=== PATIENT | female | born 1945 | race Caucasian/White ===

== ENCOUNTER 2020-08-28 10:15 | Day surgery (SDC) | payer MEDICARE, OTHER ==
[2020-08-27 15:10] LABS: BASOPHILS % (AUTO) 0.4 % (0-1); EOSINOPHILS % (AUTO) 0.3 % (0-6); HEMATOCRIT 34.2 % (35.0-45.0); HEMOGLOBIN 11.5 g/dl (12.0-16.0); LYMPHOCYTES % (AUTO) 13.3 % (21-51); MEAN CORPUSCULAR HEMOGLOBIN 32.6 PG (27.0-31.0); MEAN CORPUSCULAR HGB CONC 33.7 g/dL (33.0-36.5); MEAN CORPUSCULAR VOLUME 96.6 FL (78-98); MEAN PLATELET VOLUME 7.7 FL (7.4-10.4); MONOCYTES # (AUTO) 0.7 X10'3 (0-0.9); MONOCYTES % (AUTO) 8.5 % (2-12); NEUTROPHILS % (AUTO) 77.5 % (42-75); PLATELET COUNT 292 X10'3 (140-440); RED BLOOD COUNT 3.54 X10'6 (4.20-5.60); RED CELL DISTRIBUTION WIDTH 13.9 % (11.5-14.5); WHITE BLOOD COUNT 7.8 X10'3 (4.5-11.0)
[2020-08-27 15:25] LABS: ALBUMIN 3.9 G/DL (3.4-5.0); ANION GAP 11 (8-16); BLOOD UREA NITROGEN 20 MG/DL (7-18); BUN/CREATININE RATIO 21.3 (6.6-38.0); CALCIUM 8.1 MG/DL (8.5-10.1); CHLORIDE 99 MMOL/L (99-107); CREATININE 0.94 MG/DL (0.40-0.90); GLUCOSE 108 MG/DL (70-104); POTASSIUM 3.6 MMOL/L (3.5-5.1); SODIUM 136 MMOL/L (135-145); TOTAL CARBON DIOXIDE 26.5 MMOL/L (24-32); eGFR 58 ML/MIN
[2020-08-27 15:27] LABS: PARTIAL THROMBOPLASTIN TIME 26 SECONDS (22-32)
[~2020-08-28] VITALS: Ht 170.2 cm; Wt 92.7 kg
[2020-08-28] VITALS (12 sets, daily range): BP systolic 99–164; BP diastolic 53–81
[~2020-08-28 10:15] MED LIST: COL100C PO; DET2LAC PO; DULO-31 PO; EYE CAPS PO; FURO-150 PO; GABA300C PO; HYDR1TAB13 PO; MORP15TA60 PO; PROP40TA72 PO; SERT-153 PO; VITAMIN D3 PO
[2020-08-28] MEDS ORDERED: diphenhydrAMINE 25mg capsule PO PRN (10:45)
[2020-08-28] MEDS ORDERED: LIDOcaine/PRILOcaine 5gm cream TP ONE (10:45)
[2020-08-28] MEDS ORDERED: LORazepam 0.5 MG tablet PO PRN (10:45)
[2020-08-28] MEDS ORDERED: normal saline 1,000 ML IV SCH (10:45)
[2020-08-28] MEDS ORDERED: DULO-31 PO (11:26)
[2020-08-28] MEDS ORDERED: LOSA50TA64 PO (11:26)
[2020-08-28] MEDS ORDERED: ESTR0.5T PO (11:26)
[2020-08-28] MEDS ORDERED: PANT-47 PO (11:26)
[2020-08-28] MEDS ORDERED: GABA600T13 PO (11:26)
[2020-08-28] MEDS ORDERED: MORP15TA PO (11:26)
[2020-08-28] MEDS ORDERED: ARMO150T6 PO (11:26)
[2020-08-28] MEDS ORDERED: PRED10TA23 PO (11:26)
[2020-08-28] MEDS ORDERED: IPRA30SP (11:26)
[2020-08-28] MEDS ORDERED: TRAZ-256 PO (11:26)
[2020-08-28] MEDS ORDERED: MORP30TA PO (11:26)
[2020-08-28] MEDS ORDERED: LEVO200C2 PO (11:26)
[2020-08-28] MEDS ORDERED: ASPI81TA52 PO (11:26)
[2020-08-28] MEDS ORDERED: nitroGLYCERIN-Tridil 50MG/D5W 250 ML IV ONE (13:10)
[2020-08-28] MEDS ORDERED: verapamil 2.5 mg/ml inj IV ONE (13:10)
[2020-08-28] MEDS ORDERED: heparin 1,000unit/ml 10ml vial 10 ML ONE (13:11)
[2020-08-28] MEDS ORDERED: iohexol 350 MG/ML 50ML vial IV ONE (13:11)
[2020-08-28] MEDS ORDERED: LIDOcaine 1% (10mg/ml)w/preservative injection 20ml MDV ONE (13:11)
[2020-08-28] MEDS ORDERED: midazolam 1 mg/ML 2ml injection ONE ×2 (13:11→14:06)
[2020-08-28] MEDS ORDERED: fentaNYL/PF 50MCG/1 ML 2ML syringe ONE (13:11)
[2020-08-28] MEDS ORDERED: iohexol 350MG/ML 100ml bottle IV ONE (13:11)
[2020-08-28] MEDS ORDERED: HYDROcodone/acetaminophen 10/325mg tab PO PRN (14:50)
[2020-08-28] MEDS ORDERED: acetaminophen 325mg tablet PO PRN (14:50)
[2020-08-28] MEDS ORDERED: OXAZEpam 15mg capsule PO PRN (14:50)
[2020-08-28] MEDS ORDERED: HYDROcodone/acetaminophen 5mg/325mg tablet PO PRN (14:50)
== END 2020-08-28 18:55 | disposition home or self-care (01) ==
LOC: SSTAY O 10:15
PROVIDERS: ATTEND Internal Medicine Cardiovascular Disease
DX: R94.39 Abnormal result of other cardiovascular function study (principal); I25.10 Atherosclerotic heart disease of native coronary artery without angina pectoris; K21.9 Gastro-esophageal reflux disease without esophagitis; I10 Essential (primary) hypertension; G47.30 Sleep apnea, unspecified; G62.9 Polyneuropathy, unspecified; G25.0 Essential tremor; Z79.01 Long term (current) use of anticoagulants; Z79.899 Other long term (current) drug therapy; Z79.82 Long term (current) use of aspirin; Z85.89 Personal history of malignant neoplasm of other organs and systems; Z90.710 Acquired absence of both cervix and uterus; Z96.641 Presence of right artificial hip joint; Z98.890 Other specified postprocedural states; Z96.611 Presence of right artificial shoulder joint; Z98.41 Cataract extraction status, right eye; Z98.42 Cataract extraction status, left eye; Z72.89 Other problems related to lifestyle; Z87.01 Personal history of pneumonia (recurrent); Z88.5 Allergy status to narcotic agent; Z82.49 Family history of ischemic heart disease and other diseases of the circulatory system; Z80.3 Family history of malignant neoplasm of breast
CPT/HCPCS: 36415; 76937; 80048; 85025; 85610; 85730; 93005; 93458; 99152; C1769; J1644; J2001; J2250; J3010; J7030; Q0163; Q9967; 99153; A4620; A6258; J3490

== ENCOUNTER 2021-02-28 21:37 | Inpatient (IN) | payer MEDICARE, OTHER ==
[~2021-02-28] VITALS: Ht 170.2 cm; Wt 88.6 kg
[~2021-02-28 21:37] MED LIST changes: +ARMO150T6 PO; +ASPI81TA52 PO; -COL100C PO; +ESTR0.5T PO; -EYE CAPS PO; -GABA300C PO; +GABA600T13 PO; +IPRA30SP; +LEVO200C2 PO; +LOSA50TA64 PO; +MORP15TA PO; -MORP15TA60 PO; +MORP30TA PO; +PANT-47 PO; +PRED10TA23 PO; -PROP40TA72 PO; -SERT-153 PO; +TRAZ-256 PO; +temazepam 15mg capsule PO PRN
[2021-02-28 22:00] LABS: BASOPHILS % (AUTO) 0.6 % (0-1); EOSINOPHILS # (AUTO) 0.3 X10'3 (0-0.9); EOSINOPHILS % (AUTO) 4.1 % (0-6); HEMATOCRIT 33.5 % (35.0-45.0); HEMOGLOBIN 11.7 g/dl (12.0-16.0); LYMPHOCYTES # (AUTO) 2.2 X10'3 (1.1-4.8); LYMPHOCYTES % (AUTO) 28.1 % (21-51); MEAN CORPUSCULAR HEMOGLOBIN 32.6 PG (27.0-31.0); MEAN CORPUSCULAR HGB CONC 34.9 g/dL (33.0-36.5); MEAN CORPUSCULAR VOLUME 93.4 FL (78-98); MEAN PLATELET VOLUME 7.2 FL (7.4-10.4); MONOCYTES # (AUTO) 0.7 X10'3 (0-0.9); MONOCYTES % (AUTO) 8.7 % (2-12); NEUTROPHILS # (AUTO) 4.5 X10'3 (1.8-7.7); NEUTROPHILS % (AUTO) 58.5 % (42-75); PLATELET COUNT 272 X10'3 (140-440); RED BLOOD COUNT 3.59 X10'6 (4.20-5.60); RED CELL DISTRIBUTION WIDTH 12.5 % (11.5-14.5); WHITE BLOOD COUNT 7.7 X10'3 (4.5-11.0)
[2021-02-28 22:15] LABS: ALANINE AMINOTRANSFERASE 23 U/L (12-78); ALBUMIN 3.8 G/DL (3.4-5.0); ALBUMIN/GLOBULIN RATIO 1.1 (1.1-1.5); ALKALINE PHOSPHATASE 156 IU/L (46-116); ANION GAP 9 (8-16); ASPARTATE AMINO TRANSFERASE 18 U/L (10-37); BILIRUBIN,TOTAL 0.3 MG/DL (0.1-1.0); BLOOD UREA NITROGEN 11 MG/DL (7-18); CHLORIDE 97 MMOL/L (99-107); CREATININE 0.92 MG/DL (0.40-0.90); GLUCOSE 125 MG/DL (70-104); POTASSIUM 3.7 MMOL/L (3.5-5.1); SODIUM 133 MMOL/L (135-145); TOTAL CARBON DIOXIDE 26.8 MMOL/L (24-32); TOTAL PROTEIN 7.4 G/DL (6.4-8.2); eGFR 60 ML/MIN
[2021-02-28] MEDS ORDERED: nitroGLYCERIN 0.2mg/hour patch TD ONE (22:50)
[2021-02-28] MEDS ORDERED: normal saline 1000ml 1,000 ML IV ONE (22:50)
[2021-02-28] MEDS ORDERED: enoxaparin 100mg/ml syringe SUBCUT ONE (22:50)
[2021-02-28] MEDS ORDERED: aspirin 81mg tab.chew PO ONE (22:50)
[2021-02-28] MEDS ORDERED: normal saline 1000ML IV soln IVB ONE (22:50)
[2021-02-28 22:53] LABS: MAGNESIUM 1.9 MG/DL (1.5-2.4)
[2021-02-28] MEDS ORDERED: ondansetron/PF 4mg/2ml inj IV ONE (23:05)
[2021-02-28] MEDS ORDERED: morphine 2 MG/ML inj. syringe IV ONE (23:05)
[2021-02-28 23:11] LABS: PARTIAL THROMBOPLASTIN TIME 26 SECONDS (22-32)
[2021-02-28] MEDS ORDERED: nitroGLYCERIN 1gm ointment UD TP ONE (23:20)
[2021-02-28] MEDS ORDERED: metoprolol tartrate 1mg/ml inj IV PRN (23:40)
[2021-02-28] MEDS: normal saline 1000ml 1,000 ML IV SCH (23:40)
[2021-02-28] MEDS ORDERED: morphine 2 MG/ML inj. syringe IV PRN (23:40)
[2021-02-28] MEDS ORDERED: magnesium Cl slow-release 64mg tablet PO PRN (23:40)
[2021-02-28] MEDS ORDERED: regadenoson 0.4mg/5ml syringe IV ONE (23:40)
[2021-02-28] MEDS ORDERED: HYDROcodone/acetaminophen 5mg/325mg tablet PO PRN (23:40)
[2021-02-28] MEDS ORDERED: magnesium 2GM in 50ml NS 50 ML IV PRN (23:40)
[2021-02-28] MEDS ORDERED: aminophylline 250mg/10ml inj. IV PRN (23:40)
[2021-02-28] MEDS ORDERED: potassium CL 10mEq/100ml bag 100 ML IV PRN (23:40)
[2021-02-28] MEDS ORDERED: nitroGLYCERIN 0.4mg SUBLingual tab SL PRN (23:40)
[2021-02-28] MEDS ORDERED: mag hydrox/Alum hydrox/simeth 30ml oral suspension PO PRN (23:40)
[2021-02-28] MEDS ORDERED: ondansetron/PF 4mg/2ml inj IV PRN (23:40)
[2021-02-28] MEDS ORDERED: acetaminophen 325mg tablet PO PRN ×2 (23:40)
[2021-02-28] MEDS ORDERED: magnesium 4gm in 100ml NS 100 ML IV PRN (23:40)
[2021-02-28] MEDS ORDERED: potassium Cl 20 mEq SR tablet PO PRN ×2 (23:40)
[2021-02-28] MEDS ORDERED: regadenoson 0.4mg/5ml syringe IV PRN (23:50)
[2021-03-01] VITALS (13 sets, daily range): BP systolic 138–161; BP diastolic 77–89
[2021-03-01] MEDS ORDERED: HYDROcodone/acetaminophen 10/325mg tab PO PRN (00:10)
[2021-03-01] MEDS ORDERED: morphine 2 MG/ML inj. syringe IV PRN ×2 (00:10)
[2021-03-01 01:21] LABS: ETHANOL < 0.010 GM/DL (0.0-0.010)
[2021-03-01] MEDS ORDERED: HYDR-3972 PO (01:35)
[2021-03-01] MEDS ORDERED: PRIM50TA27 PO (01:39)
[2021-03-01] MEDS ORDERED: VIT1CAPS9 PO (01:39)
[2021-03-01] MEDS ORDERED: CHOL100046 PO (01:39)
[2021-03-01] MEDS ORDERED: CARV-49 PO (01:39)
[2021-03-01] MEDS ORDERED: VALA10002 PO (01:39)
[2021-03-01] MEDS ORDERED: heparin 10,000 units/1 ML INJ IV ONE (02:00)
[2021-03-01] MEDS ORDERED: heparin 10,000 units/1 ML INJ IV PRN (02:00)
[2021-03-01] MEDS ORDERED: heparin 25,000 UNIT/250ml bag 250 ML IV SCH (02:00)
[2021-03-01] MEDS: LORazepam 2 mg/ml vial IV PRN ×3 (02:08→18:37)
[2021-03-01] MEDS ORDERED: iohexol 350MG/ML 100ml bottle IV ONE ×2 (02:12→15:11)
--- NOTE | 2021-03-01 02:17 | NUR ---
patient moved from ED room 3 to ED room 2. After transfer patient became very anxious, and Short of breath. Pt given 1 mg Ativan IV, and put on a non rebreather at 15L. After interventions, pt O2 increased to 99, ease of breathing improved.
--- NOTE | 2021-03-01 07:04 | NUR ---
ASSUMED PT CARE. PT RESTING W/NO COMPLAINTS OR REQUESTS. DAUGHTER AT BEDSIDE. PT SHOWS NO S/S OF ACUTE DISTRESS.
[2021-03-01] MEDS ORDERED: pantoprazole 40mg Tablet.DR PO SCH (07:30)
[2021-03-01] MEDS ORDERED: heparin, porcine 5000 units/ml vial SQ SCH (08:00)
[2021-03-01] MEDS: K and/or MAG REPLACEMENT MC SCH ×2 (08:00→20:00)
[2021-03-01] MEDS ORDERED: nitroGLYCERIN 0.4mg/hour patch TD ONE (08:35)
--- NOTE | 2021-03-01 08:50 | NUR ---
SPOKE W/DR. LUGO CONCERNING INCREASED TREND OF TROPONIN LEVELS PRIOR TO LEXISCAN. MD WANTS TO WAIT FOR NEXT TROP BEFORE SENDING PT FOR LEXISCAN. PER DR. LUGO PT WILL PROCEED WITH LEXISCAN IF NEXT TROPONIN LEVEL SHOWS DECLINE.
[2021-03-01 09:10] LABS: PARTIAL THROMBOPLASTIN TIME 48 SECONDS (22-32)
[2021-03-01 09:19] LABS: BASOPHILS % (AUTO) 0.4 % (0-1); EOSINOPHILS # (AUTO) 0.2 X10'3 (0-0.9); EOSINOPHILS % (AUTO) 2.9 % (0-6); HEMATOCRIT 32.2 % (35.0-45.0); HEMOGLOBIN 11.2 g/dl (12.0-16.0); LYMPHOCYTES # (AUTO) 1.2 X10'3 (1.1-4.8); MEAN CORPUSCULAR HEMOGLOBIN 32.7 PG (27.0-31.0); MEAN CORPUSCULAR HGB CONC 34.7 g/dL (33.0-36.5); MEAN CORPUSCULAR VOLUME 94.1 FL (78-98); MEAN PLATELET VOLUME 7.9 FL (7.4-10.4); MONOCYTES # (AUTO) 0.5 X10'3 (0-0.9); MONOCYTES % (AUTO) 6.2 % (2-12); NEUTROPHILS # (AUTO) 5.8 X10'3 (1.8-7.7); NEUTROPHILS % (AUTO) 74.5 % (42-75); PLATELET COUNT 253 X10'3 (140-440); RED BLOOD COUNT 3.42 X10'6 (4.20-5.60); RED CELL DISTRIBUTION WIDTH 12.9 % (11.5-14.5); WHITE BLOOD COUNT 7.7 X10'3 (4.5-11.0)
[2021-03-01 09:41] LABS: ALANINE AMINOTRANSFERASE 18 U/L (12-78); ALBUMIN 3.3 G/DL (3.4-5.0); ALKALINE PHOSPHATASE 121 IU/L (46-116); ANION GAP 12 (8-16); ASPARTATE AMINO TRANSFERASE 16 U/L (10-37); BILIRUBIN,TOTAL 0.4 MG/DL (0.1-1.0); BLOOD UREA NITROGEN 10 MG/DL (7-18); BUN/CREATININE RATIO 12.5 (6.6-38.0); CALCIUM 7.6 MG/DL (8.5-10.1); CHLORIDE 104 MMOL/L (99-107); CHOL/HDL RATIO 2.1 (0.00-4.99); CHOLESTEROL 191 MG/DL (0-200); GLUCOSE 113 MG/DL (70-104); HDL CHOLESTEROL 92 MG/DL (35-60); LDL CHOLESTEROL 78 MG/DL (50-100); SODIUM 141 MMOL/L (135-145); TOTAL CARBON DIOXIDE 25.5 MMOL/L (24-32); TOTAL PROTEIN 6.5 G/DL (6.4-8.2); TRIGLYCERIDES 46 MG/DL (20-135); eGFR 70 ML/MIN
--- NOTE | 2021-03-01 09:55 | NUR ---
CALLED [facility] TO NOTIFY THEM THAT TROPONIN LEVEL SHOWS DECLINE AND THAT MD WANT TO PROCEED WITH LEXISCAN.
--- NOTE | 2021-03-01 10:00 | NUR ---
PTT RESULT 48= THERAPEUTIC PER PROTOCOL, NO CHANGE IN DOSE
--- NOTE | 2021-03-01 10:40 | NUR ---
Pt had a large formed brown BM.
[2021-03-01 11:23] LABS: CLARITY,URINE CLEAR (Clear); COLOR,URINE YELLOW (Yellow); GLUCOSE, URINE NEGATIVE (Neg); KETONES,URINE NEGATIVE (Neg); LEUKOCYTE ESTERASE ,URINE NEGATIVE (Neg); NITRITES, URINE NEGATIVE (Neg); OCCULT BLOOD,URINE NEGATIVE (Neg); PROTEIN,URINE NEGATIVE (Neg)
[2021-03-01 11:26] LABS: UA COLLECTION TYPE STRAIGHT CATH
--- NOTE | 2021-03-01 14:16 | NUR ---
Pt returned from cardiac stress test via wheelchair.
[2021-03-01 14:48] LABS: PARTIAL THROMBOPLASTIN TIME 42 SECONDS (22-32)
[2021-03-01] MEDS: normal saline 1000ml 1,000 ML IV SCH ×2 (14:54→21:00)
[2021-03-01] MEDS ORDERED: fentaNYL/PF 50MCG/1 ML 2ML syringe ONE (15:11)
[2021-03-01] MEDS ORDERED: heparin 1,000unit/ml 10ml vial 10 ML ONE (15:11)
[2021-03-01] MEDS ORDERED: midazolam 1 mg/ML 2ml injection ONE ×2 (15:11→15:54)
[2021-03-01] MEDS ORDERED: iohexol 350 MG/ML 50ML vial IV ONE (15:11)
[2021-03-01] MEDS ORDERED: LIDOcaine 1% (10mg/ml)w/preservative injection 20ml MDV ONE ×2 (15:11→15:58)
[2021-03-01] MEDS ORDERED: protamine sulfate 10mg/ml inj. ONE (16:10)
--- NOTE | 2021-03-01 16:40 | NUR ---
Pt received on unit. R groin dressing CDI, pedal pulses strong. Pt is drowsy but is able to let her needs be known. Will continue to monitor.
[2021-03-01] MEDS ORDERED: normal saline 1000ml 1,000 ML IV SCH (17:05)
[2021-03-01] MEDS ORDERED: hydrALAZINE 20mg/ml inj. IV PRN (18:15)
--- NOTE | 2021-03-01 18:30 | NUR ---
Pt c/o chest pain. Advised Dr Townsend - he advised to give the 1mg ativan RUDDY. No other interventions at this time. Pt was getting more and more upset and worked up as she was thinking about her grandson going back home tomorrow and she will miss him. Educated pt on anxiety/stress and asked for the family to leave the room. They all verbalized understanding.
--- NOTE | 2021-03-01 19:01 | NUR ---
Problems reprioritized. Patient report given, questions answered & plan of care reviewed with STAR Urias.
[2021-03-01] MEDS: gabapentin 300mg capsule PO SCH ×2 (20:00→23:07)
[2021-03-01] MEDS: multivitamins, therapeutics tablet PO SCH (20:00)
[2021-03-01] MEDS: ipratropium 0.06% nasal spray 15ml NS SCH (20:00)
[2021-03-01] MEDS: morphine ER 30mg tablet PO SCH ×2 (20:00→23:06)
[2021-03-01] MEDS: traZODone 50mg tablet PO SCH ×2 (21:00→23:07)
[2021-03-01] MEDS: HYDROcodone/acetaminophen 10/325mg tab PO SCH ×2 (21:00→23:07)
[2021-03-01] MEDS: carvedilol 6.25mg tablet PO SCH (23:06)
[2021-03-02] MEDS ORDERED: nitroGLYCERIN 0.4mg/hour patch TD SCH
[2021-03-02] MEDS: LORazepam 1 MG tablet PO PRN ×2 (03:22→11:20)
[2021-03-02 04:15] VITALS: BP 145/79
[2021-03-02] MEDS: normal saline 1000ml 1,000 ML IV SCH (04:16)
[2021-03-02 07:00] VITALS: BP 145/79
[2021-03-02] MEDS ORDERED: levoTHYROXINE 100mcg tablet PO SCH (07:00)
[2021-03-02 07:10] LABS: ALANINE AMINOTRANSFERASE 18 U/L (12-78); ALKALINE PHOSPHATASE 93 IU/L (46-116); ANION GAP 9 (8-16); ASPARTATE AMINO TRANSFERASE 19 U/L (10-37); BILIRUBIN,TOTAL 0.5 MG/DL (0.1-1.0); BLOOD UREA NITROGEN 7 MG/DL (7-18); BUN/CREATININE RATIO 8.4 (6.6-38.0); CALCIUM 7.3 MG/DL (8.5-10.1); CHLORIDE 101 MMOL/L (99-107); CREATININE 0.83 MG/DL (0.40-0.90); GLUCOSE 122 MG/DL (70-104); POTASSIUM 3.2 MMOL/L (3.5-5.1); SODIUM 137 MMOL/L (135-145); TOTAL CARBON DIOXIDE 26.7 MMOL/L (24-32); TOTAL PROTEIN 6.1 G/DL (6.4-8.2); eGFR 67 ML/MIN
[2021-03-02] MEDS ORDERED: pantoprazole 40mg Tablet.DR PO SCH (07:30)
[2021-03-02] MEDS: K and/or MAG REPLACEMENT MC SCH (08:00)
[2021-03-02] MEDS ORDERED: losartan 50mg tablet PO SCH (08:00)
[2021-03-02] MEDS ORDERED: duloxetine 30mg CAPSULE.DR PO SCH (08:00)
[2021-03-02] MEDS ORDERED: valacyclovir 500mg tablet PO SCH (08:00)
[2021-03-02] MEDS ORDERED: morphine ER 15mg tablet PO SCH (08:00)
[2021-03-02] MEDS ORDERED: armodafinil 50mg tablet PO SCH (08:00)
[2021-03-02] MEDS ORDERED: tolterodine 2mg SR capsule (24hr) PO SCH (08:00)
[2021-03-02] MEDS: atorvastatin 20mg tablet PO SCH ×2 (08:00→09:32)
--- NOTE | 2021-03-02 08:58 | NUR ---
Called Melvi GRAVES in [facility] advised Dr Yeh would like the heparin gtt stopped right now. Melvi verbalized understanding to stop heparin gtt./ Addendum: 03/02/21 at 0859 by Ladonna Carty RN disregard charted on incorrect patient.
[2021-03-02] MEDS: ipratropium 0.06% nasal spray 15ml NS SCH (09:29)
[2021-03-02] MEDS: HYDROcodone/acetaminophen 10/325mg tab PO SCH (09:33)
[2021-03-02] MEDS: morphine ER 30mg tablet PO SCH (09:36)
[2021-03-02] MEDS: carvedilol 6.25mg tablet PO SCH (09:36)
[2021-03-02] MEDS: multivitamins, therapeutics tablet PO SCH (09:36)
[2021-03-02] MEDS: gabapentin 300mg capsule PO SCH (09:37)
[2021-03-02 09:55] LABS: BASOPHILS % (AUTO) 0.5 % (0-1); EOSINOPHILS % (AUTO) 0.3 % (0-6); HEMATOCRIT 31.1 % (35.0-45.0); HEMOGLOBIN 10.7 g/dl (12.0-16.0); LYMPHOCYTES # (AUTO) 1.1 X10'3 (1.1-4.8); LYMPHOCYTES % (AUTO) 15.3 % (21-51); MEAN CORPUSCULAR HEMOGLOBIN 32.6 PG (27.0-31.0); MEAN CORPUSCULAR HGB CONC 34.5 g/dL (33.0-36.5); MEAN CORPUSCULAR VOLUME 94.6 FL (78-98); MONOCYTES # (AUTO) 0.5 X10'3 (0-0.9); MONOCYTES % (AUTO) 7.5 % (2-12); NEUTROPHILS # (AUTO) 5.4 X10'3 (1.8-7.7); NEUTROPHILS % (AUTO) 76.4 % (42-75); PLATELET COUNT 216 X10'3 (140-440); RED BLOOD COUNT 3.29 X10'6 (4.20-5.60); RED CELL DISTRIBUTION WIDTH 12.9 % (11.5-14.5); WHITE BLOOD COUNT 7.1 X10'3 (4.5-11.0)
[2021-03-02 10:00] VITALS: BP 168/78
--- NOTE | 2021-03-02 10:20 | NUR ---
Per Pharmacy we don't carry NuVigil please contact doctor to see if we can change this medication to Modafinil 200mg PO daily. Per Dr Cary Ernandez medication it is a stimulant and she should not be taking this at this time.
--- NOTE | 2021-03-02 11:00 | NUR ---
Patient ambulated 1 person asst with a front wheel walker approx 100'. Patient tolerated well HR did go to 111 and when patient got back in bed her SPO2 was 92% and recovered to 93% on RA. Patient did complain of chest pressure mid sternum 5/10 non radiating VS 165/87 HR 88 SPO2 91 % RA Paged Dr Townsend he was ok to give patient Ativan PO and is aware patient had 30 MG po MS Contin and a [place] , Dr Townsend was still ok with giving Ativan .
--- NOTE | 2021-03-02 11:09 | NUR ---
PAGER ID: [phone] MESSAGE: [phone] Re: Mary [phone] Please call patient having chest pain 08/12 Addendum: 03/02/21 at 1110 by Ladonna Carty RN Current vitals 165/87 HR 88 SPO2 91% RA
--- NOTE | 2021-03-02 11:48 | NUR ---
Left Message on Dr Rao holland voicemail to call back re: patient is back from Sepideh scan and has had PTT drawn. Addendum: 03/02/21 at 1355 by Ladonna Carty RN incorrect patient please disregard note.
[2021-03-02] MEDS ORDERED: ATI1T PO (12:08)
[2021-03-02] MEDS ORDERED: potassium Cl 20 mEq SR tablet PO STA (13:21)
[2021-03-02] MEDS ORDERED: furosemide 40mg/4ml inj IV ONE (13:55)
--- NOTE | 2021-03-02 13:55 | NUR ---
Patient got up to the restroom with assistance and was short of breath ambulating with walker to bathroom. Patient was assisted back to bed and O2 sats were 84% on RA. Current BP 176/96 RR [address] Townsend who came to the floor and stated to give patient 40mg IV lasix x1 and ok to still discharge home.
--- NOTE | 2021-03-02 15:04 | NUR ---
Patients discharge instructions reviewed with Patient daughter at bedside. Patients IV dc'd cannula intact. Patient was assisted in getting dressed. Patient states she has all her belongings. Cell phone and lunch bag with soda's in it. Patient was assisted to wheelchair and PCT took patient to daughters vehicle at front of hospital.
[2021-03-02] MEDS ORDERED: ISOS30TA84 PO (16:08)
== END 2021-03-02 14:55 | disposition home or self-care (01) | DRG 281 ==
LOC: ER 21:38 → ED HOLD 23:43 → MED 3N 03-01 16:30
PROVIDERS: ADMIT Internal Medicine; ATTEND Family Medicine
PROC: 4A023N7 Measurement of Cardiac Sampling and Pressure, Left Heart, Percutaneous Approach (ICD-10-PCS; principal; 2021-03-01)
PROC: B2111ZZ Fluoroscopy of Multiple Coronary Arteries using Low Osmolar Contrast (ICD-10-PCS; 2021-03-01)
PROC: B2151ZZ Fluoroscopy of Left Heart using Low Osmolar Contrast (ICD-10-PCS; 2021-03-01)
PROC: B32T1ZZ Computerized Tomography (CT Scan) of Left Pulmonary Artery using Low Osmolar Contrast (ICD-10-PCS; 2021-03-01)
PROC: B3201ZZ Computerized Tomography (CT Scan) of Thoracic Aorta using Low Osmolar Contrast (ICD-10-PCS; 2021-03-01)
PROC: B32S1ZZ Computerized Tomography (CT Scan) of Right Pulmonary Artery using Low Osmolar Contrast (ICD-10-PCS; 2021-03-01)
PROC: 4A02XM4 Measurement of Cardiac Total Activity, External Approach (ICD-10-PCS; 2021-03-01)
PROC: 3E073KZ Introduction of Other Diagnostic Substance into Coronary Artery, Percutaneous Approach (ICD-10-PCS; 2021-03-01)
DX: I51.81 Takotsubo syndrome (principal); I21.A1 Myocardial infarction type 2; I20.1 Angina pectoris with documented spasm; E89.0 Postprocedural hypothyroidism; F41.9 Anxiety disorder, unspecified; Z20.822 Contact with and (suspected) exposure to COVID-19; R06.03 Acute respiratory distress; E87.6 Hypokalemia; G89.4 Chronic pain syndrome; I10 Essential (primary) hypertension; I25.2 Old myocardial infarction; Z79.899 Other long term (current) drug therapy
CPT/HCPCS: 36415; 71045; 71275; 78452; 80053; 80061; 80320; 81003; 83735; 83880; 84484; 85025; 85610; 85730; 87081; 87635; 93005; 93017; 93306; 93458; 96365; 96372; 96375; 99152; 99153; 99291; A4620; A6258; A9500; C1760; C1769; C1894; G0378; J0360; J1644; J1650; J1940; J2060; J2250; J2270; J2405; J2720; J2785; J3010; J3490; J7030; Q9967

== ENCOUNTER 2021-04-07 17:06 | Emergency (ER) | payer MEDICARE, OTHER ==
[~2021-04-07] VITALS: Ht 170.2 cm; Wt 93.2 kg
[~2021-04-07 17:06] MED LIST changes: -ARMO150T6 PO; -ASPI81TA52 PO; +ATI1T PO; +CARV-49 PO; +CHOL100046 PO; +HYDR-3972 PO; -HYDR1TAB13 PO; +ISOS30TA84 PO; -PRED10TA23 PO; +PRIM50TA27 PO; +VALA10002 PO; +VIT1CAPS9 PO; -VITAMIN D3 PO; -temazepam 15mg capsule PO PRN
[2021-04-07 17:20] VITALS: BP 113/57
[2021-04-07] MEDS ORDERED: LIDOcaine 1% w/epiNEPHrine 1:200,000 30ml vial IJ ONE (17:55)
[2021-04-07] MEDS ORDERED: HYDROcodone/acetaminophen 10/325mg tab PO ONE (17:55)
[2021-04-07] MEDS ORDERED: LIDOcaine 1% W/epiNEPHrine 1:100,000 20ml vial IJ ONE (18:05)
== END 2021-04-07 19:38 | disposition home or self-care (01) ==
LOC: ER 17:07
DX: S01.111A Laceration without foreign body of right eyelid and periocular area, initial encounter (principal); R51.9 Headache, unspecified; I25.10 Atherosclerotic heart disease of native coronary artery without angina pectoris; I10 Essential (primary) hypertension; I25.2 Old myocardial infarction; E03.9 Hypothyroidism, unspecified; G89.29 Other chronic pain; F41.9 Anxiety disorder, unspecified; Z85.9 Personal history of malignant neoplasm, unspecified; Z98.890 Other specified postprocedural states; Z72.89 Other problems related to lifestyle; Z88.5 Allergy status to narcotic agent; Z79.899 Other long term (current) drug therapy; W19.XXXA Unspecified fall, initial encounter; Y93.89 Activity, other specified; Y92.89 Other specified places as the place of occurrence of the external cause; Y99.8 Other external cause status
CPT/HCPCS: 12013; 70450; 72125; 99285; J3490; 12011

== ENCOUNTER 2021-12-04 18:18 | Emergency (ER) | payer MEDICARE, OTHER ==
[~2021-12-04] VITALS: Ht 170.2 cm; Wt 90.0 kg
[2021-12-04 19:02] VITALS: BP 142/72
[2021-12-04] MEDS ORDERED: CEPH250T PO (22:43)
== END 2021-12-04 23:50 | disposition home or self-care (01) ==
LOC: ER 18:20
DX: S81.011A Laceration without foreign body, right knee, initial encounter (principal); I11.9 Hypertensive heart disease without heart failure; E03.9 Hypothyroidism, unspecified; F41.9 Anxiety disorder, unspecified; G89.29 Other chronic pain; M54.9 Dorsalgia, unspecified; Z88.5 Allergy status to narcotic agent; Z79.899 Other long term (current) drug therapy; Z79.2 Long term (current) use of antibiotics; W18.39XA Other fall on same level, initial encounter; Y93.89 Activity, other specified; Y92.89 Other specified places as the place of occurrence of the external cause; Y99.8 Other external cause status
CPT/HCPCS: 12034; 70450; 72125; 73560; 99284; A6223; 12004; A6258; A6449

== ENCOUNTER 2021-12-16 14:33 | Emergency (ER) | payer MEDICARE, OTHER ==
[~2021-12-16] VITALS: Ht 170.2 cm; Wt 93.2 kg
[2021-12-16 15:11] VITALS: BP 126/64
[2021-12-16 17:07] LABS: BASOPHILS % (AUTO) 0.4 % (0-1); EOSINOPHILS # (AUTO) 0.1 X10'3 (0-0.9); EOSINOPHILS % (AUTO) 0.8 % (0-6); HEMATOCRIT 31.4 % (35.0-45.0); HEMOGLOBIN 10.6 g/dl (12.0-16.0); LYMPHOCYTES # (AUTO) 1.3 X10'3 (1.1-4.8); LYMPHOCYTES % (AUTO) 11.3 % (21-51); MEAN CORPUSCULAR HEMOGLOBIN 31.7 PG (27.0-31.0); MEAN CORPUSCULAR HGB CONC 33.8 g/dL (33.0-36.5); MEAN CORPUSCULAR VOLUME 93.5 FL (78-98); MEAN PLATELET VOLUME 7.1 FL (7.4-10.4); MONOCYTES # (AUTO) 1.1 X10'3 (0-0.9); MONOCYTES % (AUTO) 9.8 % (2-12); NEUTROPHILS % (AUTO) 77.7 % (42-75); PLATELET COUNT 422 X10'3 (140-440); RED BLOOD COUNT 3.36 X10'6 (4.20-5.60); RED CELL DISTRIBUTION WIDTH 14.1 % (11.5-14.5); WHITE BLOOD COUNT 11.6 X10'3 (4.5-11.0)
[2021-12-16 17:20] LABS: ALANINE AMINOTRANSFERASE 13 U/L (12-78); ALBUMIN/GLOBULIN RATIO 0.6 (1.1-1.5); ALKALINE PHOSPHATASE 111 IU/L (46-116); ANION GAP 8 (8-16); ASPARTATE AMINO TRANSFERASE 12 U/L (10-37); BILIRUBIN,TOTAL 0.5 MG/DL (0.1-1.0); BLOOD UREA NITROGEN 11 MG/DL (7-18); BUN/CREATININE RATIO 12.1 (6.6-38.0); CALCIUM 8.1 MG/DL (8.5-10.1); CHLORIDE 92 MMOL/L (99-107); CREATININE 0.91 MG/DL (0.40-0.90); GLUCOSE 107 MG/DL (70-104); POTASSIUM 3.6 MMOL/L (3.5-5.1); SODIUM 129 MMOL/L (135-145); eGFR 60 ML/MIN
== END 2021-12-16 22:06 | disposition left against medical advice (07) ==
LOC: ER 14:35
DX: Z48.00 Encounter for change or removal of nonsurgical wound dressing (principal); Z53.21 Procedure and treatment not carried out due to patient leaving prior to being seen by health care provider
CPT/HCPCS: 36415; 80053; 84145; 85025

== ENCOUNTER 2024-05-29 07:16 | Day surgery (SDC) | payer MEDICARE, OTHER ==
[2024-05-25 09:51] LABS: BASOPHILS % (AUTO) 0.7 % (0-1); EOSINOPHILS # (AUTO) 0.1 X10'3 (0-0.9); EOSINOPHILS % (AUTO) 2.1 % (0-6); LYMPHOCYTES # (AUTO) 0.9 X10'3 (1.1-4.8); MEAN CORPUSCULAR HEMOGLOBIN 33.9 PG (27.0-31.0); MEAN CORPUSCULAR VOLUME 99.8 FL (78-98); MONOCYTES # (AUTO) 0.6 X10'3 (0-0.9); MONOCYTES % (AUTO) 8.9 % (2-12); NEUTROPHILS % (AUTO) 74.3 % (42-75); PRE OP HEMATOCRIT 36.9 % (35.0-45.0); PRE OP HEMOGLOBIN 12.5 g/dL (12.0-16.0); PRE OP PLATELET COUNT 213 X10'3 (140-440); PRE OP WHITE BLOOD COUNT 6.8 10'3 (4.8-10.8); RED CELL DISTRIBUTION WIDTH 14.1 % (11.5-14.5)
[2024-05-25 10:22] LABS: ALBUMIN 3.7 G/DL (3.4-5.0); ALBUMIN/GLOBULIN RATIO 1.1 (1.1-1.5); ALKALINE PHOSPHATASE 151 IU/L (46-116); BLOOD UREA NITROGEN 12 MG/DL (7-18); BUN/CREATININE RATIO 17.9 (10.0-20.0); CALCIUM 7.8 MG/DL (8.5-10.1); CHLORIDE 97 MMOL/L (99-107); CREATININE 0.67 MG/DL (0.40-0.90); PRE OP ALT 35 U/L (30-65); PRE OP ANION GAP 8 (8-16); PRE OP AST 25 U/L (10-37); PRE OP BILIRUB, TOTAL 0.7 MG/DL (0.0-1.0); PRE OP GLUCOSE 106 MG/DL (70-104); PRE OP POTASSIUM 3.6 MMOL/L (3.4-5.1); PRE OP SODIUM 136 MMOL/L (135-145); TOTAL CARBON DIOXIDE 31.3 MMOL/L (24-32); eGFR 85 ML/MIN
[~2024-05-29] VITALS: Ht 170.2 cm; Wt 93.1 kg
[2024-05-29] VITALS (14 sets, daily range): BP systolic 145–195; BP diastolic 64–96; PULSE 66–84; RESP 9–22; TEMP 98.9; O2SAT 90–99
[2024-05-29] MEDS: ceFAZolin 2gm in dextrose, iso 50 ML IV ONE (05:30)
[2024-05-29] MEDS: DOCUMENT DATE & TIME OF BETA-BLOCKER PO ONE (05:30)
[~2024-05-29 07:16] MED LIST changes: +AMLO2.5T2 PO; +ARIP5TAB12 PO; +ARMO150T6 PO; +ASPI81TA52 PO; -ATI1T PO; -CARV-49 PO; +CARV-50 PO; +DEUT6TAB PO; +DEUT9TAB PO; +DOCU-337 PO; +DULO60CA65 PO; -ESTR0.5T PO; +ESTR0.5T36 PO; +GABA-1405 PO; -GABA600T13 PO; -ISOS30TA84 PO; -LOSA50TA64 PO; +MODA100T31 PO; -PANT-47 PO; -VALA10002 PO; +VALS80TA32 PO; +VIT1TAB.13 PO
[2024-05-29] MEDS: famotidine 20mg tablet PO ONE (08:18)
[2024-05-29] MEDS: ringers solution, lacted 1,000 ML IV SCH ×2 (08:19→10:46)
[2024-05-29] MEDS ORDERED: labetalol 20mg/4ml (5mg/ml) syringe IV PRN (09:10)
[2024-05-29] MEDS ORDERED: morphine 4 MG/ML inj SYRINge IV PRN (09:10)
[2024-05-29] MEDS ORDERED: morphine 2 MG/ML inj. syringe IV PRN (09:10)
[2024-05-29] MEDS ORDERED: ondansetron/PF 4mg/2ml inj IV PRN (09:10)
[2024-05-29] MEDS ORDERED: BUPIVAcaine/PF 2.5mg/ml (0.25%) 10ml vial ONE (09:39)
[2024-05-29] MEDS ORDERED: LIDOcaine 2% (20mg/ml) 5ml vial ONE (09:39)
[2024-05-29] MEDS ORDERED: fentaNYL/PF 50MCG/1 ML 2ML syringe ONE (09:55)
[2024-05-29] MEDS ORDERED: midazolam 1 mg/ML 2ml injection ONE (09:55)
[2024-05-29] MEDS ORDERED: propofol 10mg/ml 20ml vial IV ONE (09:56)
[2024-05-29] MEDS: BUPIVAcaine/PF 2.5mg/ml (0.25%) 10ml vial IJ ONE (10:14)
[2024-05-29] MEDS: hydrALAZINE 20mg/ml inj. IV PRN (11:22)
== END 2024-05-29 12:41 | disposition home or self-care (01) ==
LOC: PAS 07:16
PROVIDERS: ATTEND Orthopaedic Surgery Hand Surgery
DX: G56.01 Carpal tunnel syndrome, right upper limb (principal); I10 Essential (primary) hypertension; I25.10 Atherosclerotic heart disease of native coronary artery without angina pectoris; G47.33 Obstructive sleep apnea (adult) (pediatric); F41.9 Anxiety disorder, unspecified; F32.A Depression, unspecified; Z85.850 Personal history of malignant neoplasm of thyroid; Z88.6 Allergy status to analgesic agent; Z79.899 Other long term (current) drug therapy; M19.012 Primary osteoarthritis, left shoulder; M19.032 Primary osteoarthritis, left wrist; M19.011 Primary osteoarthritis, right shoulder; M18.12 Unilateral primary osteoarthritis of first carpometacarpal joint, left hand; M48.061 Spinal stenosis, lumbar region without neurogenic claudication; Z98.890 Other specified postprocedural states; Z72.89 Other problems related to lifestyle
CPT/HCPCS: 36415; 64721; 80053; 82948; 85025; A4215; A4615; A6449; J0360; J0690; J2003; J2250; J2704; J3010; J3490; J7030; J7120; Z7506; Z7512; Z7610

== ENCOUNTER 2024-09-01 00:34 | Emergency (ER) | payer MEDICARE, OTHER ==
[~2024-09-01] VITALS: Ht 170.2 cm; Wt 93.1 kg
[~2024-09-01 00:34] MED LIST changes: -DOCU-337 PO; -LEVO200C2 PO; +LEVO200C3 PO; -VIT1CAPS9 PO; -VIT1TAB.13 PO
[2024-09-01 00:45] VITALS: TEMP 97.6
[2024-09-01 01:16] LABS: BASOPHILS # (AUTO) 0.1 X10'3 (0-0.2); BASOPHILS % (AUTO) 0.7 % (0-1); EOSINOPHILS # (AUTO) 0.4 X10'3 (0-0.9); EOSINOPHILS % (AUTO) 3.6 % (0-6); HEMATOCRIT 36.6 % (35.0-45.0); HEMOGLOBIN 12.7 g/dl (12.0-16.0); LYMPHOCYTES # (AUTO) 1.1 X10'3 (1.1-4.8); LYMPHOCYTES % (AUTO) 10.3 % (21-51); MEAN CORPUSCULAR HGB CONC 34.7 g/dL (33.0-36.5); MEAN CORPUSCULAR VOLUME 98.1 FL (78-98); MEAN PLATELET VOLUME 6.7 FL (7.4-10.4); MONOCYTES # (AUTO) 0.7 X10'3 (0-0.9); MONOCYTES % (AUTO) 6.4 % (2-12); NEUTROPHILS # (AUTO) 8.8 X10'3 (1.8-7.7); PLATELET COUNT 247 X10'3 (140-440); RED BLOOD COUNT 3.73 X10'6 (4.20-5.60); RED CELL DISTRIBUTION WIDTH 14.7 % (11.5-14.5); WHITE BLOOD COUNT 11.1 X10'3 (4.5-11.0)
[2024-09-01 01:25] LABS: ALANINE AMINOTRANSFERASE 21 U/L (12-78); ALBUMIN 4.1 G/DL (3.4-5.0); ALBUMIN/GLOBULIN RATIO 1.2 (1.1-1.5); ALKALINE PHOSPHATASE 116 IU/L (46-116); ANION GAP 6 (8-16); ASPARTATE AMINO TRANSFERASE 17 U/L (10-37); BILIRUBIN,TOTAL 0.7 MG/DL (0.1-1.0); BLOOD UREA NITROGEN 11 MG/DL (7-18); BUN/CREATININE RATIO 10.3 (10.0-20.0); CALCIUM 8.4 MG/DL (8.5-10.1); CHLORIDE 98 MMOL/L (99-107); CREATININE 1.07 MG/DL (0.40-0.90); GLUCOSE 114 MG/DL (70-104); POTASSIUM 4.1 MMOL/L (3.5-5.1); SODIUM 135 MMOL/L (135-145); TOTAL CARBON DIOXIDE 30.6 MMOL/L (24-32); TOTAL PROTEIN 7.4 G/DL (6.4-8.2); eCRCL 41 ML/MIN; eGFR 49 ML/MIN
[2024-09-01 01:32] LABS: PRO BRAIN NATRIURETIC PEPTIDE 1247 PG/ML (0-450)
--- NOTE | 2024-09-01 01:48 | RADIOLOGY REPORT ---
CHEST RADIOGRAPH Indication: CP Technique: Single frontal view of the chest was obtained COMPARISON: None FINDINGS: Lines and Tubes: None Lungs / Pleura: Atelectasis/consolidation at right lung base and possible small right-sided pleural effusion. Left lung is clear. No pulmonary edema. Cardiomediastinal contours: Unremarkable Bones: Partially visualized right total shoulder arthroplastly. Advanced degenerative changes in left glenohumeral joint. Mild thoracic dextroscoliosis and spondylosis. IMPRESSION: Atelectasis/consolidation at right lung base.
--- NOTE | 2024-09-01 02:16 | Physician Documentation ---
History of Present Illness ~ Chief Complaint: Hypertension Stated Complaint: HTN Time Seen by MD: 02:10 Primary Medical Doctor: BETTY Source: patient, EMS Mode of Arrival: EMS Exam Limitations: no limitations HPI Chief Complaint: Hypertension Caveat: None Independent Historians: None History of Present Illness: Patient is a 79-year-old woman brought in by ambulance from home because of high blood pressures. Patient's blood pressure has ranged from 199-212 systolic over 106-117 diastolic. Patient went to her miter cutter Dr. Cedillo earlier today and he made some medication adjustments. He increased her valsartan to 160 mg twice a day and instructed her to take an additional 80 mg of propranolol for blood pressure remains over 140. She did that without any improvement in her blood pressure. Patient then called Dr. Ponce Quintanilla's office and he recommended she take an additional amlodipine 10 mg what she did in her blood pressure continued to remain high. Patient is also on amlodipine 10 mg twice a day. Dr. Cedillo recommended that she come to the emergency department to be evaluated. Patient denies of having any symptoms. She denies chest pain, no shortness a breath, no stroke symptoms, no headache. Review of systems: All systems were reviewed and are negative except for what is indicated in the history of present illness. Past Medical History: Hypertension Past Surgical History: Social History: No tobacco use, no alcohol use, no drug use Medications: Reviewed as documented Nursing Notes Allergies: Reviewed as documented in Nursing Notes Medication Reconciliation Allergies: Coded Allergies: codeine (Verified Adverse Reaction, Unknown, HEADACHE, 09/01/24) Scheduled Amlodipine* (Norvasc*), 5 MG PO DAILY, (Reported) Aripiprazole* (Abilify*), 1 TAB PO DAILY, (Reported) Aripiprazole* (Abilify*), 10 MG PO HS, (Reported) Armodafinil (Armodafinil), 1 TAB PO DAILY, (Reported) Aspirin (Aspirin EC), 1 TAB PO DAILY, (Reported) Carvedilol (Carvedilol), 1 TAB PO Q12H, (Reported) Cholecalciferol (Vitamin D3) (Vitamin D3), 1 CAP PO DAILY, (Reported) Deutetrabenazine (Austedo), 1 TAB PO DAILY, (Reported) Deutetrabenazine (Austedo), 1 TAB PO DAILY, (Reported) Duloxetine HCl (Duloxetine HCl), 60 MG PO QAM, (Reported) Duloxetine Hcl* (Cymbalta*), 30 MG PO HS, (Reported) Estradiol (Estradiol), 2 TAB PO DAILY, (Reported) Furosemide* (Lasix*), 20 MG PO DAILY, (Reported) Gabapentin (Gabapentin), 1 TAB PO BID, (Reported) Ipratropium [place] Nasal Ramer* (Atrovent Nasal Ramer*), 2 SPRAY NA BID, (Reported) Levothyroxine Sodium (Levothyroxine), 1 TAB PO DAILY, (Reported) Modafinil (Modafinil), 2 TAB PO DAILY, (Reported) Morphine Sulfate (Morphine Sulfate), 1 TAB PO DAILY, (Reported) Morphine Sulfate (Morphine Sulfate), 1 TAB PO Q12H, (Reported) Primidone (Mysoline), 1 TAB PO DAILY, (Reported) Tolterodine Tartrate LA* (Detrol LA*), 4 MG PO DAILY, (Reported) Trazodone HCl (Trazodone HCl), 1 TAB PO HS, (Reported) Valsartan (Valsartan), 1 TAB PO DAILY, (Reported) Scheduled PRN Hydrocodone Bit/Acetaminophen (Hydrocodon-Acetaminophn 10-325 tablet), 1 TAB PO TID PRN for pain, (Reported) Past Medical History Past Medical History: Coronary Artery Disease, Hypertension, Myocardial Infarction, Hypothyroidism, Chronic Back Pain, *CANCER*, Anxiety Past Surgical History: orthopedic surgeries, other Alcohol Use: Heavy Drug Use: none Lives with: Family Lives In: Home Review of Systems All Other Systems at this time: Reviewed and Negative ROS Patient denies any other acute symptoms other than above. All other systems are negative Physical Exam Vital Signs: RN Vital Signs have been reviewed: Yes, Temperature: 97.6, Source: Temporal, Heart Rate: 82, Respiratory Rate: 15, BP: 151/103, Pulse Oximetry: 99, Weight: 93.100 Pulse Oximetry Reflects: adequate oxygenation Physical Exam General Appearance: No distress HEENT: Normal OP, moist oral mucosa, PERRL, EOMI Neck: supple, normal ROM, trachea midline Pulmonary: No respiratory distress, CTA, BS equal Cardiac: RRR, no murmur, rub or gallop, GI: nondistended, soft, nontender, normal bowel sounds, no guarding, no rebound Extremities: normal ROM, no swelling, non-tender Skin: intact, dry, warm, no rashes Neuro: AAOx3, speech is clear, no focal motor weakness Psych: normal affect, good eye contact, no apparent hallucination, normal speech Progress Results/Orders Results/Orders Orders - RICHARD MENENDEZ MD Chest,Single View (09/01/24 01:35) Monitor (09/01/24 00:58) Saline Lock (09/01/24 00:58) Oxygen (09/01/24 00:58) Electrocardiogram (09/01/24 00:58) Hs Troponin I W Calculations (09/01/24 03:58) Cta Chest Pe (09/01/24 04:33) Completed Orders - RICHARD MENENDEZ MD Chest,Single View (09/01/24 01:35) Cbc/Diff (09/01/24 00:58) PBNP (09/01/24 00:58) CMP (09/01/24 00:58) Hs Troponin I W Calculations (09/01/24 00:58) Hs Troponin I W Calculations (09/01/24 02:58) Cta Chest Pe (09/01/24 04:33) Iohexol 350mg/Ml 100ml (Omnipaque 350mg/ (09/01/24 02:59) Vital Signs 09/01/24 09/01/24 09/01/24 00:45 02:14 02:16 Temp 97.6 Pulse 82 86 Resp 15 15 B/P (MAP) 151/103 162/88 (112) Pulse Ox 99 99 99 O2 Delivery Room Air* O2 Flow Rate 0 FiO2 21 Laboratory Tests Test 09/01/24 01:03 09/01/24 02:59 White Blood Count 11.1 H Red Blood Count 3.73 L Hemoglobin 12.7 Hematocrit 36.6 Mean Corpuscular Volume 98.1 H Mean Corpuscular Hemoglobin 34.0 H Mean Corpuscular Hemoglobin Concent 34.7 Red Cell Distribution Width 14.7 H Platelet Count 247 Mean Platelet Volume 6.7 L Neutrophils (%) (Auto) 79.0 H Lymphocytes (%) (Auto) 10.3 L Monocytes (%) (Auto) 6.4 Eosinophils (%) (Auto) 3.6 Basophils (%) (Auto) 0.7 Neutrophils # (Auto) 8.8 H Lymphocytes # (Auto) 1.1 Monocytes # (Auto) 0.7 Eosinophils # (Auto) 0.4 Basophils # (Auto) 0.1 CBC Comment Sodium Level 135 Potassium Level 4.1 Chloride Level 98 L Carbon Dioxide Level 30.6 Anion Gap 6 L Blood Urea Nitrogen 11 Creatinine 1.07 H Estimated GFR/1.73 m2 49 BUN/Creatinine Ratio 10.3 Glucose Level 114 H Calcium Level 8.4 L Total Bilirubin 0.7 Aspartate Amino Transf (AST/SGOT) 17 Alanine Aminotransferase (ALT/SGPT) 21 Alkaline Phosphatase 116 Troponin I High Sensitivity 7 6 Pro-B-Type Natriuretic Peptide 1247 H Total Protein 7.4 Albumin 4.1 Globulin 3.3 Albumin/Globulin Ratio 1.2 Chemistry Comments Troponin I High Sens Percent Delta 14 Troponin I Hi Sens Absolute Change -1 Medical Decision Making Findings Differential diagnosis includes but isn't limited to: Hypertensive emergency, hypertensive urgency, uncontrolled hypertension EKG independent interpretation: Performed at 1:14 a.m.. Normal sinus rhythm, heart rate 65, normal axis, normal ST segments, first-degree AV block Chest x-ray, single view, indication: Hypertension Independent interpretation: Infiltrate with consolidation and possible pleural effusion on the right, left lung is clear, normal mediastinum, normal cardiac silhouette. Patient has not had a chest x-ray since February of 2021. Laboratory data independent interpretation: CBC: Very mild leukocytosis of 11.1 CMP: Mildly elevated creatinine of 1.07 Troponin: 7 ProBNP: 1,247 Emergency department course/medical decision-making: Patient presents with uncontrolled hypertension. Patient's blood pressure improved upon arrival here and she did require in medical intervention. However the patient's chest x-ray showed a new infiltrate in the right lower lobe. CTA of the chest was obtained to further assess the right lower lobe. Varus some question of a subtle filling defect where the arteries versus artifact. This is going to be treated with a pulmonary embolus. Patient is not having any symptoms we will pulmonary embolus in the main reason for the CTA was to further assess the right lower lobe new infiltrate. Patient also isn't having any symptoms of pneumonia. Patient is afebrile. Patient has a blood cell count. Recommendation be per Radiology to a repeat scan in six months. This is likely scarring and atelectasis. Patient is stable for discharge. She will follow up also with the miter cutter for blood pressure monitoring. ALL OF THE ABOVE WAS DISCUSSED WITH THE PATIENT AND SHE UNDERSTANDS THAT SHE WILL FOLLOW UP WITH HER SUPPLY CHAIN ASSISTANT AND PRIMARY CARE DOCTOR FOR THE CHEST X-RAY/CT FINDINGS. Departure Time of Disposition: 02:14 Impression: Primary Impression: Uncontrolled hypertension Condition: Improved Discharge Instructions: Hypertension, Adult Additional Instructions: FOLLOW UP WITH DR. CEDILLO LATER TODAY. YOU MAY TAKE AN EXTRA 10 MG OF AMLODIPINE IF YOUR BLOOD PRESSURE IS OVER 180 SYSTOLIC. YOU HAVE A NEW INFILTRATE ON YOUR CHEST X-RAY IN THE RIGHT LOWER LOBE. THIS IS THOUGHT TO BE ATELECTASIS AND POSSIBLE SCARRING ON THE CT SCAN. THIS IS NOT THOUGHT TO BE PNEUMONIA OR A BLOOD CLOT. FOLLOW UP WITH YOUR PRIMARY CARE DOCTOR AND SHOW HIM OR HER YOUR CT REPORT. RECOMMEND REPEAT CT SCAN IN SIX MONTHS. Referrals: NO PRIMARY CARE PROVIDER (PCP) Education Educated: Patient Educated regarding: diagnosis, treatment, need for follow up Signature Scribe Signature: NO SCRIBE Attestation: NO KELSIEIBE RICHARD MENENDEZ MD September 01, 2024 02:16
[2024-09-01] MEDS ORDERED: iohexol 350MG/ML 100ml bottle IV ONE (02:59)
--- NOTE | 2024-09-01 05:06 | RADIOLOGY REPORT ---
EXAM: CT Angiography Chest With Intravenous Contrast CLINICAL INDICATION: opacity RLL TECHNIQUE: Axial computed tomographic angiography images of the chest with intravenous contrast. Th is CT exam was performed using one or more of the following dose reduction techniques: automated exp osure control, adjustment of the mA and/or kV according to patient size, and/or use of iterative vanessa nstruction technique. MIP reconstructed images were created and reviewed. CONTRAST: COMPARISON: CTA CHEST on DOS: 03/01/21 FINDINGS: PULMONARY ARTERIES: Subtle filling defect in the right pulmonary artery could be secondary to artif act and/or pulmonary emboli. AORTA: No acute findings. No thoracic aortic aneurysm. LUNGS AND PLEURAL SPACES: Lung emphysema/COPD. Right lower lobe peripheral atelectasis/scarring or pneumonia. Repeat CT in 6 months is recommended. No mass. No significant effusion. HEART: Unremarkable. No cardiomegaly. No significant pericardial effusion. No evidence of RV dys function. BONES/JOINTS: No acute fracture. No dislocation. SOFT TISSUES: Unremarkable. LYMPH NODES: Unremarkable. No enlarged lymph nodes. OTHER FINDINGS: . . IMPRESSION: 1. Subtle filling defect in the right pulmonary artery could be secondary to artifact and/or pulmona ry emboli. 2. Lung emphysema/COPD. Right lower lobe peripheral atelectasis/scarring or pneumonia. Repeat CT in 6 months is recommended.
[2024-09-01 05:44] VITALS: BP 148/92; PULSE 83; RESP 16; O2SAT 99
--- NOTE | 2024-09-01 08:24 | ELECTROCARDIOGRAPH REPORT ---
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 Vivek Fox Measurements Intervals [place] Rate: 65 P: 1 [place]: 241 QRS: 6 QRSD: 104 T: 36 QT: 440 QTc: 458 Interpretive Statements Sinus rhythm Prolonged [place] interval Low voltage, precordial leads Anteroseptal infarct, age indeterminate Electronically Signed On 09-02-2024 11:01:[address] Vivek Fox Please click the below link to view image of tracing.
== END 2024-09-01 05:50 | disposition home or self-care (01) ==
LOC: ER 00:36
DX: I10 Essential (primary) hypertension (principal); E03.9 Hypothyroidism, unspecified; I25.10 Atherosclerotic heart disease of native coronary artery without angina pectoris; Z88.5 Allergy status to narcotic agent
CPT/HCPCS: 36415; 71045; 71275; 80053; 83880; 84484; 85025; 93005; 99285; Q9967

== ENCOUNTER 2025-03-09 19:07 | Emergency (ER) | payer MEDICARE, OTHER ==
[~2025-03-09] VITALS: Ht 162.6 cm; Wt 93.1 kg
[2025-03-09 19:23] VITALS: PULSE 80; RESP 15; O2SAT 94
[2025-03-10 00:16] VITALS: TEMP 96.3
--- NOTE | 2025-03-10 00:16 | Physician Documentation ---
History of Present Illness ~ Chief Complaint: Mechanical Fall Stated Complaint: FALL Time Seen by MD: 23:05 Primary Medical Doctor: BETTY SAAVEDRA Patient is a pleasant pleasant 79-year-old female that presents to the emergency department via ambulance. Patient reports that she fell out of her chair reaching for items a couple of times at home today. Patient reports that she has no injuries she did not strike her head she was not dizzy she did not have any rugs red flag symptoms patient is alert and oriented completely able to make decisions. Patient reports that she has a central tremors at baseline she reached too far a couple of times while trying to grab the same box and fell. She reports that she told EMS she did not need to be transported she did not have injuries she had did not strike her head and not have any loss of consciousness in his completely fine without pain or injury. Patient will be sent home with strict return precautions. Patient will follow up with the primary care provider patient will return to the emergency department if any worsening or recurrent symptoms or any additional concerning symptoms that we discussed here today. Tetanus within 5 Years?: Yes Medication Reconciliation Allergies: Coded Allergies: codeine (Verified Adverse Reaction, Unknown, HEADACHE, 03/09/25) Scheduled Amlodipine* (Norvasc*), 5 MG PO DAILY, (Reported) Aripiprazole* (Abilify*), 1 TAB PO DAILY, (Reported) Aripiprazole* (Abilify*), 10 MG PO HS, (Reported) Armodafinil (Armodafinil), 1 TAB PO DAILY, (Reported) Aspirin (Aspirin EC), 1 TAB PO DAILY, (Reported) Carvedilol (Carvedilol), 1 TAB PO Q12H, (Reported) Cholecalciferol (Vitamin D3) (Vitamin D3), 1 CAP PO DAILY, (Reported) Deutetrabenazine (Austedo), 1 TAB PO DAILY, (Reported) Deutetrabenazine (Austedo), 1 TAB PO DAILY, (Reported) Duloxetine HCl (Duloxetine HCl), 60 MG PO QAM, (Reported) Duloxetine Hcl* (Cymbalta*), 30 MG PO HS, (Reported) Estradiol (Estradiol), 2 TAB PO DAILY, (Reported) Furosemide* (Lasix*), 20 MG PO DAILY, (Reported) Gabapentin (Gabapentin), 1 TAB PO BID, (Reported) Ipratropium Pound Nasal [place]* (Atrovent Nasal [place]*), 2 SPRAY NA BID, (Reported) Levothyroxine Sodium (Levothyroxine), 1 TAB PO DAILY, (Reported) Modafinil (Modafinil), 2 TAB PO DAILY, (Reported) Morphine Sulfate (Morphine Sulfate), 1 TAB PO DAILY, (Reported) Morphine Sulfate (Morphine Sulfate), 1 TAB PO Q12H, (Reported) Primidone (Mysoline), 1 TAB PO DAILY, (Reported) Tolterodine Tartrate LA* (Detrol LA*), 4 MG PO DAILY, (Reported) Trazodone HCl (Trazodone HCl), 1 TAB PO HS, (Reported) Valsartan (Valsartan), 1 TAB PO DAILY, (Reported) Scheduled PRN Hydrocodone Bit/Acetaminophen (Hydrocodon-Acetaminophn 10-325 tablet), 1 TAB PO TID PRN for pain, (Reported) Past Medical History Past Medical History: Coronary Artery Disease, Hypertension, Myocardial Infarction, Hypothyroidism, Chronic Back Pain, *CANCER*, Anxiety Past Surgical History: orthopedic surgeries, other Alcohol Use: Heavy Drug Use: none Lives with: Family Lives In: Home Review of Systems ROS As stated above in the HPI, otherwise all systems are reviewed and negative. Physical Exam Vital Signs: Temperature: 96.3, Source: Temporal, Heart Rate: 80, Respiratory Rate: 15, Pulse Oximetry: 94, Weight: 93.100 Physical Exam VITALS: Reviewed and as above. GENERAL: Alert, no apparent distress. HEENT: Normocephalic, atraumatic, PERRL, EOMI, dry mucosa, no erythema RESPIRATORY: Lungs clear, normal breath sounds, no respiratory distress. CHEST: No accessory muscle use, no retractions CV: Regular rate, rhythm, no edema, no murmur, No: JVD GI: Soft, non-tender, bowels sounds present, no rebound, guarding, or rigidity BACK: No CVA tenderness, or swelling MUSCULOSKELETAL No deformities, no edema SKIN: Warm and dry, no rash NEURO: Oriented x4, No motor or sensory deficit PSYCH: Normal mood and affect, no agitation Progress Results/Orders Results/Orders Vital Signs 03/09/25 19:23 Temp 96.3 Pulse 80 Resp 15 Pulse Ox 94 Medical Decision Making Additional information obtaine: other Findings Chief Complaint: Multiple mechanical falls at home History of Present Illness: 79-year-old female presented via EMS after experiencing multiple falls today while reaching for items from her chair at home. Patient reports falling after overreaching for the same box on multiple occasions. She denies any associated symptoms including loss of consciousness, dizziness, chest pain, palpitations, or dyspnea. No head strike, no injuries sustained. Patient was alert and oriented at scene and declined initial EMS transport. Patient has a known baseline central tremor. She denies any new neurological symptoms, weakness, numbness, or changes in vision. No recent medication changes. Patient is currently asymptomatic and without pain or injury. Medical Decision Making: Fall Risk Stratification: Patient experienced multiple falls (?2) in a single day, which warrants careful assessment. However, these falls appear to be mechanical in nature related to overreaching while seated, rather than due to intrinsic factors such as syncope, orthostasis, or gait/balance impairment. Patient denies loss of consciousness, did not sustain fall-related injury requiring treatment, was able to rise independently without prolonged time on floor, and does not meet criteria for frailty based on clinical assessment. Given the mechanical etiology and absence of high-risk features (no injury, no loss of consciousness, able to rise independently, no suspected syncope), patient is stratified as intermediate risk rather than high risk for future falls. The recurrent nature of falls today, even if mechanical, elevates her above low-risk status and indicates need for gait and balance assessment and primary prevention strategies. Emergency Department Evaluation: Comprehensive head-to-toe examination performed with no evidence of acute injury. Neurological examination without new abnormalities. Patient ambulated in ED with steady gait, able to rise from chair without diffi culty. Orthostatic vital signs within normal limits. No indication for head CT given absence of head strike, no loss of consciousness, no amnesia, normal neurologic examination, and Clinical Frailty Scale <5. Disposition Rationale: Patient is safe for discharge home based on the following: Mechanical etiology of falls identified (overreaching while seated) No acute injuries or concerning findings on examination Able to ambulate safely and rise from chair independently in ED Alert, oriented, and demonstrates full decision-making capacity Appropriate social support at home Clear return precautions provided Discharge Plan: Patient will follow up with primary care provider for: Annual fall risk screening as recommended for adults ?65 years Gait and balance assessment (Timed Up and Go test, 30-second chair stand, or 4- stage balance test) given recurrent falls Medication review to identify and potentially deprescribe fall-risk increasing drugs Assessment for need for physical therapy referral for strength and balance exercise intervention Home safety evaluation and environmental modification recommendations Consideration of vitamin D supplementation if deficient Return Precautions: Patient instructed to return to ED immediately for any of the following: recurrent falls, loss of consciousness, dizziness, new weakness or numbness, head injury, inability to ambulate, chest pain, shortness of breath, or any other concerning symptoms. Complexity: Moderate complexity given need for fall risk stratification, comprehensive examination to exclude injury, assessment of multiple potential etiologies, and coordination of outpatient fall prevention strategies. Differential Dx:Considerations: Include: Closed head injury, Cardiac injury, Fracture(s), Intraabdominal injury, Pneumothorax, Cerebral contusion, Pulmonary contusion, Spine injury, Tracheal injury, Urological injury, Vascular injury, Abrasion(s), Contusion(s), Foreign body(s), Hematoma(s), Laceration(s), Encephalopathy, Other Departure Disposition: 01 HOME / SELF CARE / HOMELESS Impression: Primary Impression: Fall Additional Impression: General medical exam Condition: Stable Discharge Instructions: Fall Prevention in the Home, Adult, [id number] Additional Instructions: Why You Came to the Emergency Department You came to the emergency department today after falling out of your chair at home while reaching for items. The good news is that you did not have any injuries, did not hit your head, and did not lose consciousness. Your examination showed no signs of injury. What Happened Your falls today were caused by reaching too far while sitting in your chair. While these falls were related to overreaching (a mechanical cause), having multiple falls in one day means you are at risk for future falls and need to take steps to prevent them. Follow-Up Care - Very Important Schedule an appointment with your primary care doctor within 1-2 weeks. Your doctor needs to: Check your risk for future falls using simple tests of your balance and strength Review all your medications (including [id number] medicines) to see if any increase your fall risk Check your vitamin D level and possibly recommend vitamin D supplements (at least 800 IU per day) Evaluate your vision and hearing Assess whether you need physical therapy to improve your strength and balance What You Can Do at Home Make Your Home Safer: Remove loose rugs, electrical cords, and clutter from walkways Install grab bars in the bathroom near the toilet and in the shower/tub Improve lighting throughout your home, especially in hallways and stairs Keep frequently used items within easy reach - do not overreach while seated Consider a bedside lamp or nightlight for nighttime Make sure stairways have sturdy handrails on both sides Wear supportive, non-slip shoes at home (avoid slippers or socks alone) Stay Active: Regular exercise, especially exercises that improve balance and leg strength, can reduce your risk of falling. Talk to your doctor about: Physical therapy referral Community exercise programs designed for older adults (such as joy chi or balance classes) Safe ways to stay active at home Medication Safety: Bring all your medications (including [id number] medicines, vitamins, and supplements) to your doctor appointment Some medications can increase fall risk by causing dizziness, drowsiness, or low blood pressure Never stop taking prescribed medications without talking to your doctor first When to Return to the Emergency Department Come back to the emergency department right away if you have: Another fall, especially if you hit your head or cannot get up Loss of consciousness or fainting New dizziness or feeling lightheaded New weakness, numbness, or trouble walking Chest pain or shortness of breath Confusion or changes in thinking Any injury or pain from a fall Any other symptoms that concern you Important Reminders Falls are not a normal part of aging - they can be prevented Many falls happen at home and can be prevented with simple changes Fear of falling can limit your activities, but staying active actually helps prevent falls Ask for help when you need it - it's better to ask than to fall Resources The Centers for Disease Control and Prevention (CDC) has free resources about fall prevention and home safety. Ask your doctor about the "Stay Independent" brochure or visit www.cdc.gov/steadi/patient.html. Referrals: NO PRIMARY CARE PROVIDER (PCP) Education Educated: Patient Educated regarding: diagnosis, treatment, need for follow up Signature Scribe Signature: A Attestation: Scribed for Saud Lane by ANGUS Vasquez . 03/10/25 00:[address] Mar 10, 2025 00:16
== END 2025-03-10 00:27 | disposition home or self-care (01) ==
LOC: ER 19:07
DX: Z00.00 Encounter for general adult medical examination without abnormal findings (principal); I25.2 Old myocardial infarction; I25.10 Atherosclerotic heart disease of native coronary artery without angina pectoris; I10 Essential (primary) hypertension; E03.9 Hypothyroidism, unspecified; G89.29 Other chronic pain; Z88.5 Allergy status to narcotic agent; Z79.899 Other long term (current) drug therapy; Z98.890 Other specified postprocedural states; F10.90 Alcohol use, unspecified, uncomplicated; Y90.9 Presence of alcohol in blood, level not specified; W07.XXXA Fall from chair, initial encounter; Y93.89 Activity, other specified; Y92.89 Other specified places as the place of occurrence of the external cause; Y99.8 Other external cause status
CPT/HCPCS: 99283